=== PATIENT | male | born 1995 | race Two or more races ===

== ENCOUNTER 2023-10-16 22:10 | Emergency (ER) | payer OTHER ==
[2023-10-16 22:23] VITALS: BP 147/90
--- NOTE | 2023-10-16 22:40 | ED Physician Documentation ---
History of Present Illness - Stated complaint Stated Complaint: CAT SCRATCH - Chief complaint Chief Complaint: General - History obtained from History obtained from: Patient - Additonal information Additional information: 28yM utd on tetanus p/w small cat scratch to R philtrum just beneath nasal ala. Denies other injury. PD PAST MEDICAL HISTORY - Past Medical History Past Medical History: No Cardiovascular: None Respiratory: None Neuro: None Endocrine/Autoimmune: None GI: None : None HEENT: None Psych: None Musculoskeletal: None Derm: None - Past Surgical History Past Surgical History: No - Present Medications Home Medications: Ambulatory Orders Medication Instructions Recorded Confirmed No Known Home Medications 10/16/23 10/16/23 - Allergies Allergies/Adverse Reactions: Allergies Allergy/AdvReac Type Severity Reaction Status Date / Time No Known Drug Allergies Allergy Verified 10/16/23 22:18 - Social History Does the pt smoke?: No Smoking Status: Never smoker Does the pt drink ETOH?: Yes Does the pt have substance abuse?: No - Immunizations Immunizations are current?: Yes - POLST Patient has POLST: No PD ED PE NORMAL - Vitals Vital signs reviewed: Yes - General General: Alert and oriented X 3, No acute distress, Well developed/nourished - HEENT HEENT: Atraumatic, PERRL, EOMI, Moist mucous membranes, Other (1cm abrasion to R side of philtrum just beneath nasal ala) Results - Vitals Vitals: Vital Signs - 24 hr 10/16/23 22:13 Temperature 36.7 C Heart Rate 84 Respiratory 16 Rate Blood Pressure 147/90 H O2 Saturation 96 Oxygen O2 Source Room air Procedures - Laceration (location) Face right Length in cm: 1 Wound type: Linear Neurovascular status: Sensory intact, Motor intact, Vascular intact Wound preparation: Other (abrasion/superficial laceration was cleansed with soap/water and fine towel) Skin layer closure: Dermabond Other: Patient tolerated well, No complications, Tetanus UTD PD Medical Decision Making - ED course ED course: 28yM p/w small cat scratch to face, which was superficial enough to constitute an abrasion. cleansed with soap/water then covered with skin glue as protective barrier. return precautions given.tdap utd. Departure - Departure Disposition: 01 Home, Self Care Clinical Impression: Cat scratch Condition: Stable Instructions: ED Abrasion Comments: You were seen in the emergency department for a small scratch to the face from a cat. Dermabond skin glue was applied after cleansing. It should fall off on its own in 3-5 days and you can then apply bacitracin ointment to the area twice daily thereafter. Please follow-up with your primary care provider as needed and return to the emergency department if you have any new or worsening symptoms or other concerns. Forms: PCP List
[2023-10-16 22:59] VITALS: O2SAT 98
== END 2023-10-16 22:58 | disposition home or self-care (01) ==
LOC: ED 22:10
DX: S01.23XA Puncture wound without foreign body of nose, initial encounter (principal); W55.03XA Scratched by cat, initial encounter
CPT/HCPCS: 12011; 99281